=== PATIENT | male | born 1965 | race Caucasian/White ===

== ENCOUNTER → 2018-03-22 11:24 | Outpatient (CLI) | payer BC, SELFPAY ==
--- NOTE | 2018-03-22 11:38 | DI.CT.S_ITS ---
PROCEDURE: CT ABDOMEN PELVIS WO CON INDICATIONS: Kidney stone eval TECHNIQUE: After the administration of oral contrast, 5 mm thick sections acquired from the diaphragms to the symphysis. 5 mm coronal and sagittal reformats were performed. For radiation dose reduction, the following was used: automated exposure control, adjustment of mA and/or kV according to patient size. COMPARISON: None. FINDINGS: Image quality: Excellent. ABDOMEN: Lung bases: 3 mm posterior right lower lobe pulmonary nodule on axial image 4 of series 3. Heart size is normal. Solid organs: Liver is normal in size. Gallbladder shows cholelithiasis. Pancreas is normal in size. Spleen is normal in size. No adrenal nodules. Small punctate nonobstructing nephroliths within the kidneys bilaterally. There is a 6 mm obstructing stone in the mid left ureter resulting in upstream ureteral dilatation and mild hydronephrosis. Peritoneum and bowel: Bowel loops demonstrate normal wall thickness and caliber. No free fluid or air. Nodes and vessels: No retroperitoneal or mesenteric adenopathy by size criteria. Aorta and inferior vena cava are normal in size. Miscellaneous: There is a 1.0 cm-containing umbilical hernia and a 3.0 cm fat-containing ventral abdominal hernia located inferior to the umbilical hernia. PELVIS: Genitourinary: Bladder wall thickness is normal. Miscellaneous: No inguinal hernias or adenopathy. Bones: No suspicious bony lesions. No vertebral body compression fractures. IMPRESSION: #1. 6 mm obstructing stone in the mid left ureter resulting in mild upstream ureteral dilatation and mild hydronephrosis. Additional punctate nonobstructing nephroliths bilaterally. #2. Incidental findings including cholelithiasis and small ventral abdominal wall fat-containing hernias. #3. 3 mm noncalcified pulmonary nodule in the right lower lobe. Per Fleischner criteria, consider followup CT of the chest in one year if the patient has risk factors for lung cancer such as a history of smoking. Dictated by: Matthias Naranjo M.D. on 03/22/2018 at 11:57 Approved by: Matthias Naranjo M.D. on 03/22/2018 at 12:12
== END ==
PROVIDERS: Visit Provider Physician Assistant
DX: N13.2 Hydronephrosis with renal and ureteral calculous obstruction (principal); K43.9 Ventral hernia without obstruction or gangrene; R91.1 Solitary pulmonary nodule; R10.9 Unspecified abdominal pain
CPT/HCPCS: 74176

== ENCOUNTER 2018-03-24 15:33 | Emergency (ER) | payer BC, SELFPAY ==
[2018-03-24 15:59] VITALS: BP 149/81; PULSE 66; RESP 18; TEMP 36.9; O2SAT 99; BMI 54.3
--- NOTE | 2018-03-24 18:51 | ED.ABDPAIN ---
HPI - Abdominal Pain <GERTRUDE Becker - Last Filed: 03/24/18 21:05> General Chief Complaint: Abdominal Pain Stated Complaint: KIDNEY STONES Time Seen by Provider: 03/24/18 18:29 Source: patient Mode of arrival: ambulatory Limitations: no limitations History of Present Illness HPI narrative: Patient states he received a call from Sunday from the walk-in who instructed him to come to the emergency department to have his labs checked. He presented there for flank pain and upper abdominal pain, CT was ordered which found a kidney stone. He currently denies any pain at this point he denies dysuria urgency or frequency. He denies fevers, nausea, vomiting or diarrhea. He states he is only here to get his labs checked. He denies blood in his urine. Related Data Previous Rx's Medication Instructions Recorded tamsulosin [Flomax] 0.4 mg PO DAILY #7 cap 03/24/18 Allergies Allergy/AdvReac Type Severity Reaction Status Date / Time No Known Drug Allergies Allergy Verified 03/24/18 16:05 Review of Systems <GETRRUDE Becker - Last Filed: 03/24/18 21:05> Review of Systems GENERAL: Denies chills, fatigue, malaise, fever, sweats. HEENT: Denies sinus pain, ear pain, sore throat, difficulty swallowing, dizziness. RESPIRATORY: Denies dyspnea, cough, wheezing, hemoptysis, sputum. CARDIOVASCULAR: Denies chest pain, palpitations, orthopnea, edema, GASTROINTESTINAL: Denies nausea, vomiting, abdominal pain, diarrhea, constipation, melena. : See HPI MUSCULOSKELETAL: denies weakness, joint pain, or bony pain SKIN: Denies rash, skin lesions, or other NEUROLOGIC: Denies weakness, headache, numbness, change in speech, confusion, seizures, incoordination. PSYCHIATRIC: No concerning psychosocial issues. 12 point review of systems is negative except for those stated above Exam <GERTRUDE Becker - Last Filed: 03/24/18 21:05> Narrative Exam Narrative: GENERAL: Obese gentleman sitting in chair HEAD: Atraumatic. Normocephalic. No temporal or scalp tenderness. EYES: Pupils equal round and reactive. Extraocular motions intact. No scleral icterus. No injection or drainage. ENT: Nose without bleeding, purulent drainage or septal hematoma. Throat without erythema, tonsillar hypertrophy or exudate. Uvula midline. Airway patent. NECK: Trachea midline. No JVD or lymphadenopathy. Supple, nontender, no meningeal signs. CARDIOVASCULAR: Regular rate and rhythm without murmurs, gallops, or rubs. RESPIRATORY: Clear to auscultation. Breath sounds equal bilaterally. No wheezes, rales, or rhonchi. GASTROINTESTINAL: Abdomen soft, non-tender, nondistended. No hepato-splenomegaly, or palpable masses. No guarding. Active bowel sounds all 4 quadrants. EXTREMITIES: No clubbing, cyanosis, or edema. No joint tenderness, effusion, or edema noted. BACK: Nontender without deformity or crepitance. No flank tenderness. No CVA tenderness bilaterally. NEURO: AOx3. SKIN: No rash or erythema. Initial Vital Signs Initial Vital Signs: Vital Signs Temperature 98.5 F 03/24/18 15:59 Pulse Rate 66 03/24/18 15:59 Respiratory Rate 18 03/24/18 15:59 Blood Pressure 149/81 H 03/24/18 15:59 Pulse Oximetry 99 03/24/18 15:59 <Michael Manning DO - Last Filed: 03/24/18 21:07> Initial Vital Signs Initial Vital Signs: Vital Signs Temperature 98.5 F 03/24/18 15:59 Pulse Rate 66 03/24/18 15:59 Respiratory Rate 18 03/24/18 15:59 Blood Pressure 149/81 H 03/24/18 15:59 Pulse Oximetry 99 03/24/18 15:59 Course <KRISTAN Becker-BC - Last Filed: 03/24/18 21:05> Orders Ordered: ED Orders 03/24/18 19:30 CBC [Complete Blood Count AUTO DIFF] Stat Comprehensive Metabolic Panel Stat Vital Signs - 8 hr 03/24/18 15:59 03/24/18 20:21 Temperature 98.5 F Pulse Rate 66 61 Respiratory Rate 18 18 Blood Pressure 149/81 H 142/86 H Pulse Oximetry 99 98 <Michael Manning DO - Last Filed: 03/24/18 21:07> Orders Ordered: ED Orders 03/24/18 19:30 CBC [Complete Blood Count AUTO DIFF] Stat Comprehensive Metabolic Panel Stat Vital Signs - 8 hr 03/24/18 15:59 03/24/18 20:21 Temperature 98.5 F Pulse Rate 66 61 Respiratory Rate 18 18 Blood Pressure 149/81 H 142/86 H Pulse Oximetry 99 98 MDM - Abdominal Pain <VANESSA BeckerP- - Last Filed: 03/24/18 21:05> Differential Diagnosis Differential diagnosis: Likely abdominal pain, acute appendicitis, calculus of kidney, diverticulitis and gastroenteritis Medical Records Attestation: I reviewed the patient's medical records. Lab Data Attestation: I reviewed the patient's lab results. Result diagrams: 03/24/18 19:30 03/24/18 19:30 Lab Results 03/24/18 03/24/18 Range/Units 19:30 19:30 WBC 7.5 (4.5-11.0) X10^3/uL RBC 4.42 L (4.5-5.9) X10^6/uL Hgb 14.0 (13.5-17.5) g/dL Hct 40.6 L (41-53) % MCV 91.8 (80-100) fL MCH 31.7 (26-34) PG MCHC 34.5 (30-36) % RDW 13.2 (11.6-14.8) % Plt Count 185 (150-400) X10^3/uL Neut % (Auto) 67.6 (50-75) % Lymph % (Auto) 25.1 (25-40) % Hinds % (Auto) 5.0 (3-14) % Eos % (Auto) 1.3 L (2-4) % Baso % (Auto) 1.0 (0-2) % Neut # (Auto) 5100 (6788-1195) /uL Sodium 147 H (137-145) mmol/L Potassium 4.5 (3.4-5.1) mmol/L Chloride 106 (98-107) mmol/L Carbon Dioxide 32 (22-32) mmol/L BUN 13 (9-20) mg/dL Creatinine 1.00 (0.66-1.25) mg/dL Estimated GFR > 60.0 (>60) mL/min BUN/Creatinine Ratio 13.0 (6-22) Glucose 104 H (70-100) mg/dL Calcium 9.5 (8.4-10.2) mg/dL Total Bilirubin 0.5 (0.2-1.3) mg/dL AST 25 (17-59) IU/L ALT 41 (21-72) IU/L Alkaline Phosphatase 64 (38-126) U/L Total Protein 7.0 (6.3-8.2) g/dL Albumin 4.3 (3.5-5.0) g/dL Globulin 2.7 (1.7-4.1) g/dL Albumin/Globulin Ratio 1.6 (1.0-2.8) Point of care testing: Urine Dip Bedside Urine Glucose Negative Bedside Urine Bilirubin - Negative Bedside Urine Ketone - Negative Urine Specific Hinkle 1.015 Bedside Urine Occult Blood - Negative Bedside Urine pH 7.5 Bedside Urine Protein - Negative Bedside Urine Urobilinogen - Negative Bedside Urine Nitrite - Negative Bedside Urine Leukocytes - Negative Esterase Imaging Data CT scan - abdomen: Radiologist's impression: View Report History [address] [address] [address] Scan Report Signed Patient: Rubin Bautista MR#: [id number] : 1965 Acct:[id number] Age/Sex: 52 / M Date of Service: 03/22/18 Loc: CT Accession Number: [id number] Procedure: CT abdomen pelvis wo con Ordering Provider: Joseph Worrell P.A-C PROCEDURE: CT ABDOMEN PELVIS WO CON INDICATIONS: Kidney stone eval TECHNIQUE: After the administration of oral contrast, 5 mm thick sections acquired from the diaphragms to the symphysis. 5 mm coronal and sagittal reformats were performed. For radiation dose reduction, the following was used: automated exposure control, adjustment of mA and/or kV according to patient size. COMPARISON: None. FINDINGS: Image quality: Excellent. ABDOMEN: Lung bases: 3 mm posterior right lower lobe pulmonary nodule on axial image 4 of series 3. Heart size is normal. Solid organs: Liver is normal in size. Gallbladder shows cholelithiasis. Pancreas is normal in size. Spleen is normal in size. No adrenal nodules. Small punctate nonobstructing nephroliths within the kidneys bilaterally. There is a 6 mm obstructing stone in the mid left ureter resulting in upstream ureteral dilatation and mild hydronephrosis. Peritoneum and bowel: Bowel loops demonstrate normal wall thickness and caliber. No free fluid or air. Nodes and vessels: No retroperitoneal or mesenteric adenopathy by size criteria. Aorta and inferior vena cava are normal in size. Miscellaneous: There is a 1.0 cm-containing umbilical hernia and a 3.0 cm fat-containing ventral abdominal hernia located inferior to the umbilical hernia. PELVIS: Genitourinary: Bladder wall thickness is normal. Miscellaneous: No inguinal hernias or adenopathy. Bones: No suspicious bony lesions. No vertebral body compression fractures. IMPRESSION: #1. 6 mm obstructing stone in the mid left ureter resulting in mild upstream ureteral dilatation and mild hydronephrosis. Additional punctate nonobstructing nephroliths bilaterally. #2. Incidental findings including cholelithiasis and small ventral abdominal wall fat-containing hernias. #3. 3 mm noncalcified pulmonary nodule in the right lower lobe. Per Fleischner criteria, consider followup CT of the chest in one year if the patient has risk factors for lung cancer such as a history of smoking. Dictated by: Matthias Naranjo M.D. on 03/22/2018 at 11:57 Approved by: Matthias Naranjo M.D. on 03/22/2018 at 12:12 MDM Narrative Medical decision making narrative: Patient presented requesting lab work to check kidney function given recent kidney stone diagnosis. I offered pain medication, IV and a urine strainer, but the patient declined at this point time. He stated he would not strain his urine any way. I did check his CBC and CMP per his request, and his kidney function came back within normal limits. I did put him on Flomax to help encourage stone to pass. I encouraged follow up with the primary care provider and referred him to a few local to him in [place]. I offered him pain medication, but the patient declined. I discussed that the pain from a kidney stone can come back at any point but he still declined pain medication. I discussed return precautions to the emergency department including inability keep down fluids or any other acute concerns. Patient and a questions or concerns upon discharge. <Michael Manning, DO - Last Filed: 03/24/18 21:07> Lab Data Lab Results 03/24/18 03/24/18 Range/Units 19:30 19:30 WBC 7.5 (4.5-11.0) X10^3/uL RBC 4.42 L (4.5-5.9) X10^6/uL Hgb 14.0 (13.5-17.5) g/dL Hct 40.6 L (41-53) % MCV 91.8 (80-100) fL MCH 31.7 (26-34) PG MCHC 34.5 (30-36) % RDW 13.2 (11.6-14.8) % Plt Count 185 (150-400) X10^3/uL Neut % (Auto) 67.6 (50-75) % Lymph % (Auto) 25.1 (25-40) % Hinds % (Auto) 5.0 (3-14) % Eos % (Auto) 1.3 L (2-4) % Baso % (Auto) 1.0 (0-2) % Neut # (Auto) 5100 (9454-8547) /uL Sodium 147 H (137-145) mmol/L Potassium 4.5 (3.4-5.1) mmol/L Chloride 106 (98-107) mmol/L Carbon Dioxide 32 (22-32) mmol/L BUN 13 (9-20) mg/dL Creatinine 1.00 (0.66-1.25) mg/dL Estimated GFR > 60.0 (>60) mL/min BUN/Creatinine Ratio 13.0 (6-22) Glucose 104 H (70-100) mg/dL Calcium 9.5 (8.4-10.2) mg/dL Total Bilirubin 0.5 (0.2-1.3) mg/dL AST 25 (17-59) IU/L ALT 41 (21-72) IU/L Alkaline Phosphatase 64 (38-126) U/L Total Protein 7.0 (6.3-8.2) g/dL Albumin 4.3 (3.5-5.0) g/dL Globulin 2.7 (1.7-4.1) g/dL Albumin/Globulin Ratio 1.6 (1.0-2.8) Point of care testing: Urine Dip Bedside Urine Glucose Negative Bedside Urine Bilirubin - Negative Bedside Urine Ketone - Negative Urine Specific Hinkle 1.015 Bedside Urine Occult Blood - Negative Bedside Urine pH 7.5 Bedside Urine Protein - Negative Bedside Urine Urobilinogen - Negative Bedside Urine Nitrite - Negative Bedside Urine Leukocytes - Negative Esterase Discharge Plan Departure Patient Disposition: Home Clinical Impression: Kidney stone Discharge Date/Time: 03/24/18 20:27 Interventions: ED Discharge Assessment Last Done: 03/24/18 20:21 Instructions: DI for Kidney Stones Activity Restrictions/Additional Instructions: I have given you a prescription for Flomax. Please take this at night. I encourage you to push fluids, follow up if fevers, vomiting, diarrhea or signs of infection. Please follow-up with primary care provider if the stone does not pass in the next few days. You may need a referral to Urology. I have encouraged you to strain your urine. I have given you some contact information for [facility] Prescriptions: New tamsulosin [Flomax] 0.4 mg capsule 0.4 mg PO DAILY Qty: 7 RF: 0 Referrals: [facility] [Outside] [facility] [Outside] <Michael Manning DO - Last Filed: 03/24/18 21:07> [facility] ED Attending [place] Attestation: I was available for consultation during this patient's emergency department encounter
[2018-03-24 19:39] LABS: Add Manual Diff / Slide Review NO; Eosinophils Percent Auto 1.3 % (2-4); Hematocrit 40.6 % (41-53); Lymphocytes Percent Auto 25.1 % (25-40); Mean Corpuscular HGB Conc 34.5 % (30-36); Mean Corpuscular Hemoglobin 31.7 PG (26-34); Mean Corpuscular Volume 91.8 fL (80-100); Neutrophils Absolute Auto 5100 /uL (3000-5900); Neutrophils Percent Auto 67.6 % (50-75); Platelet Count 185 X10^3/uL (150-400); Red Blood Cell Count 4.42 X10^6/uL (4.5-5.9); Red Cell Distribution Width 13.2 % (11.6-14.8); White Blood Cell Count 7.5 X10^3/uL (4.5-11.0)
[2018-03-24 19:46] LABS: Alanine Aminotransferase 41 IU/L (21-72); Albumin 4.3 g/dL (3.5-5.0); Albumin Globulin Ratio 1.6 (1.0-2.8); Alkaline Phosphatase 64 U/L (38-126); Aspartate Aminotransferase 25 IU/L (17-59); Bilirubin Total 0.5 mg/dL (0.2-1.3); Blood Urea Nitrogen 13 mg/dL (9-20); Calcium 9.5 mg/dL (8.4-10.2); Carbon Dioxide 32 mmol/L (22-32); Chloride 106 mmol/L (98-107); Estimated Glomerular Filt Rate > 60.0 mL/min (>60); Globulin 2.7 g/dL (1.7-4.1); Glucose 104 mg/dL (70-100); HEMOLYSIS < 15 (0-50); Potassium 4.5 mmol/L (3.4-5.1); Sodium 147 mmol/L (137-145)
[2018-03-24 20:21] VITALS: BP 142/86; PULSE 61; RESP 18; O2SAT 98
--- NOTE | 2018-03-24 21:05 | ED_ITS ---
HPI - Abdominal Pain <GERTRUDE Becker - Last Filed: 03/24/18 21:05> General Chief Complaint: Abdominal Pain Stated Complaint: KIDNEY STONES Time Seen by Provider: 03/24/18 18:29 Source: patient Mode of arrival: ambulatory Limitations: no limitations History of Present Illness HPI narrative: Patient states he received a call from Sunday from the walk-in who instructed him to come to the emergency department to have his labs checked. He presented there for flank pain and upper abdominal pain, CT was ordered which found a kidney stone. He currently denies any pain at this point he denies dysuria urgency or frequency. He denies fevers, nausea, vomiting or diarrhea. He states he is only here to get his labs checked. He denies blood in his urine. Related Data Previous Rx's Medication Instructions Recorded tamsulosin [Flomax] 0.4 mg PO DAILY #7 cap 03/24/18 Allergies Allergy/AdvReac Type Severity Reaction Status Date / Time No Known Drug Allergies Allergy Verified 03/24/18 16:05 Review of Systems <GERTRUDE Becker - Last Filed: 03/24/18 21:05> Review of Systems GENERAL: Denies chills, fatigue, malaise, fever, sweats. HEENT: Denies sinus pain, ear pain, sore throat, difficulty swallowing, dizziness. RESPIRATORY: Denies dyspnea, cough, wheezing, hemoptysis, sputum. CARDIOVASCULAR: Denies chest pain, palpitations, orthopnea, edema, GASTROINTESTINAL: Denies nausea, vomiting, abdominal pain, diarrhea, constipation, melena. : See HPI MUSCULOSKELETAL: denies weakness, joint pain, or bony pain SKIN: Denies rash, skin lesions, or other NEUROLOGIC: Denies weakness, headache, numbness, change in speech, confusion, seizures, incoordination. PSYCHIATRIC: No concerning psychosocial issues. 12 point review of systems is negative except for those stated above Exam <GERTRUDE Becker - Last Filed: 03/24/18 21:05> Narrative Exam Narrative: GENERAL: Obese gentleman sitting in chair HEAD: Atraumatic. Normocephalic. No temporal or scalp tenderness. EYES: Pupils equal round and reactive. Extraocular motions intact. No scleral icterus. No injection or drainage. ENT: Nose without bleeding, purulent drainage or septal hematoma. Throat without erythema, tonsillar hypertrophy or exudate. Uvula midline. Airway patent. NECK: Trachea midline. No JVD or lymphadenopathy. Supple, nontender, no meningeal signs. CARDIOVASCULAR: Regular rate and rhythm without murmurs, gallops, or rubs. RESPIRATORY: Clear to auscultation. Breath sounds equal bilaterally. No wheezes , rales, or rhonchi. GASTROINTESTINAL: Abdomen soft, non-tender, nondistended. No hepato-splenomegaly , or palpable masses. No guarding. Active bowel sounds all 4 quadrants. EXTREMITIES: No clubbing, cyanosis, or edema. No joint tenderness, effusion, or edema noted. BACK: Nontender without deformity or crepitance. No flank tenderness. No CVA tenderness bilaterally. NEURO: AOx3. SKIN: No rash or erythema. Initial Vital Signs Initial Vital Signs: Vital Signs Temperature 98.5 F 03/24/18 15:59 Pulse Rate 66 03/24/18 15:59 Respiratory Rate 18 03/24/18 15:59 Blood Pressure 149/81 H 03/24/18 15:59 Pulse Oximetry 99 03/24/18 15:59 <Michael Manning DO - Last Filed: 03/24/18 21:07> Initial Vital Signs Initial Vital Signs: Vital Signs Temperature 98.5 F 03/24/18 15:59 Pulse Rate 66 03/24/18 15:59 Respiratory Rate 18 03/24/18 15:59 Blood Pressure 149/81 H 03/24/18 15:59 Pulse Oximetry 99 03/24/18 15:59 Course <KRISTAN Becker-BC - Last Filed: 03/24/18 21:05> Orders Ordered: ED Orders 03/24/18 19:30 CBC [Complete Blood Count AUTO DIFF] Stat Comprehensive Metabolic Panel Stat Vital Signs - 8 hr 03/24/18 15:59 03/24/18 20:21 Temperature 98.5 F Pulse Rate 66 61 Respiratory Rate 18 18 Blood Pressure 149/81 H 142/86 H Pulse Oximetry 99 98 <Michael Manning DO - Last Filed: 03/24/18 21:07> Orders Ordered: ED Orders 03/24/18 19:30 CBC [Complete Blood Count AUTO DIFF] Stat Comprehensive Metabolic Panel Stat Vital Signs - 8 hr 03/24/18 15:59 03/24/18 20:21 Temperature 98.5 F Pulse Rate 66 61 Respiratory Rate 18 18 Blood Pressure 149/81 H 142/86 H Pulse Oximetry 99 98 MDM - Abdominal Pain <VANESSA BeckerP- - Last Filed: 03/24/18 21:05> Differential Diagnosis Differential diagnosis: Likely abdominal pain, acute appendicitis, calculus of kidney, diverticulitis and gastroenteritis Medical Records Attestation: I reviewed the patient's medical records. Lab Data Attestation: I reviewed the patient's lab results. Result diagrams: 03/24/18 19:30 03/24/18 19:30 Lab Results 03/24/18 03/24/18 Range/Units 19:30 19:30 WBC 7.5 (4.5-11.0) X10^3/uL RBC 4.42 L (4.5-5.9) X10^6/uL Hgb 14.0 (13.5-17.5) g/dL Hct 40.6 L (41-53) % MCV 91.8 (80-100) fL MCH 31.7 (26-34) PG MCHC 34.5 (30-36) % RDW 13.2 (11.6-14.8) % Plt Count 185 (150-400) X10^3/uL Neut % (Auto) 67.6 (50-75) % Lymph % (Auto) 25.1 (25-40) % [place] % (Auto) 5.0 (3-14) % Eos % (Auto) 1.3 L (2-4) % Baso % (Auto) 1.0 (0-2) % Neut # (Auto) 5100 (3117-5071) /uL Sodium 147 H (137-145) mmol/L Potassium 4.5 (3.4-5.1) mmol/L Chloride 106 (98-107) mmol/L Carbon Dioxide 32 (22-32) mmol/L BUN 13 (9-20) mg/dL Creatinine 1.00 (0.66-1.25) mg/dL Estimated GFR > 60.0 (>60) mL/min BUN/Creatinine Ratio 13.0 (6-22) Glucose 104 H (70-100) mg/dL Calcium 9.5 (8.4-10.2) mg/dL Total Bilirubin 0.5 (0.2-1.3) mg/dL AST 25 (17-59) IU/L ALT 41 (21-72) IU/L Alkaline Phosphatase 64 (38-126) U/L Total Protein 7.0 (6.3-8.2) g/dL Albumin 4.3 (3.5-5.0) g/dL Globulin 2.7 (1.7-4.1) g/dL Albumin/Globulin Ratio 1.6 (1.0-2.8) Point of care testing: Urine Dip Bedside Urine Glucose Negative Bedside Urine Bilirubin - Negative Bedside Urine Ketone - Negative Urine Specific [place] 1.015 Bedside Urine Occult Blood - Negative Bedside Urine pH 7.5 Bedside Urine Protein - Negative Bedside Urine Urobilinogen - Negative Bedside Urine Nitrite - Negative Bedside Urine Leukocytes - Negative Esterase Imaging Data CT scan - abdomen: Radiologist's impression: View Report History [address] [address] [address] Scan Report Signed Patient: Rubin Bautista MR#: [id number] : 1965 Acct:[id number] Age/Sex: 52 / M Date of Service: 03/22/18 Loc: CT Accession Number: [id number] Procedure: CT abdomen pelvis wo con Ordering Provider: Joseph Worrell P.A-C PROCEDURE: CT ABDOMEN PELVIS WO CON INDICATIONS: Kidney stone eval TECHNIQUE: After the administration of oral contrast, 5 mm thick sections acquired from the diaphragms to the symphysis. 5 mm coronal and sagittal reformats were performed. For radiation dose reduction, the following was used: automated exposure control, adjustment of mA and/or kV according to patient size. COMPARISON: None. FINDINGS: Image quality: Excellent. ABDOMEN: Lung bases: 3 mm posterior right lower lobe pulmonary nodule on axial image 4 of series 3. Heart size is normal. Solid organs: Liver is normal in size. Gallbladder shows cholelithiasis. Pancreas is normal in size. Spleen is normal in size. No adrenal nodules. Small punctate nonobstructing nephroliths within the kidneys bilaterally. There is a 6 mm obstructing stone in the mid left ureter resulting in upstream ureteral dilatation and mild hydronephrosis. Peritoneum and bowel: Bowel loops demonstrate normal wall thickness and caliber. No free fluid or air. Nodes and vessels: No retroperitoneal or mesenteric adenopathy by size criteria. Aorta and inferior vena cava are normal in size. Miscellaneous: There is a 1.0 cm-containing umbilical hernia and a 3.0 cm fat- containing ventral abdominal hernia located inferior to the umbilical hernia. PELVIS: Genitourinary: Bladder wall thickness is normal. Miscellaneous: No inguinal hernias or adenopathy. Bones: No suspicious bony lesions. No vertebral body compression fractures. IMPRESSION: #1. 6 mm obstructing stone in the mid left ureter resulting in mild upstream ureteral dilatation and mild hydronephrosis. Additional punctate nonobstructing nephroliths bilaterally. #2. Incidental findings including cholelithiasis and small ventral abdominal wall fat-containing hernias. #3. 3 mm noncalcified pulmonary nodule in the right lower lobe. Per Fleischner criteria, consider followup CT of the chest in one year if the patient has risk factors for lung cancer such as a history of smoking. Dictated by: Matthias Naranjo M.D. on 03/22/2018 at 11:57 Approved by: Matthias Naranjo M.D. on 03/22/2018 at 12:12 MDM Narrative Medical decision making narrative: Patient presented requesting lab work to check kidney function given recent kidney stone diagnosis. I offered pain medication, IV and a urine strainer, but the patient declined at this point time. He stated he would not strain his urine any way. I did check his CBC and CMP per his request, and his kidney function came back within normal limits. I did put him on Flomax to help encourage stone to pass. I encouraged follow up with the primary care provider and referred him to a few local to him in [place]. I offered him pain medication, but the patient declined. I discussed that the pain from a kidney stone can come back at any point but he still declined pain medication. I discussed return precautions to the emergency department including inability keep down fluids or any other acute concerns. Patient and a questions or concerns upon discharge. <Michael Manning, DO - Last Filed: 03/24/18 21:07> Lab Data Lab Results 03/24/18 03/24/18 Range/Units 19:30 19:30 WBC 7.5 (4.5-11.0) X10^3/uL RBC 4.42 L (4.5-5.9) X10^6/uL Hgb 14.0 (13.5-17.5) g/dL Hct 40.6 L (41-53) % MCV 91.8 (80-100) fL MCH 31.7 (26-34) PG MCHC 34.5 (30-36) % RDW 13.2 (11.6-14.8) % Plt Count 185 (150-400) X10^3/uL Neut % (Auto) 67.6 (50-75) % Lymph % (Auto) 25.1 (25-40) % [place] % (Auto) 5.0 (3-14) % Eos % (Auto) 1.3 L (2-4) % Baso % (Auto) 1.0 (0-2) % Neut # (Auto) 5100 (4143-0536) /uL Sodium 147 H (137-145) mmol/L Potassium 4.5 (3.4-5.1) mmol/L Chloride 106 (98-107) mmol/L Carbon Dioxide 32 (22-32) mmol/L BUN 13 (9-20) mg/dL Creatinine 1.00 (0.66-1.25) mg/dL Estimated GFR > 60.0 (>60) mL/min BUN/Creatinine Ratio 13.0 (6-22) Glucose 104 H (70-100) mg/dL Calcium 9.5 (8.4-10.2) mg/dL Total Bilirubin 0.5 (0.2-1.3) mg/dL AST 25 (17-59) IU/L ALT 41 (21-72) IU/L Alkaline Phosphatase 64 (38-126) U/L Total Protein 7.0 (6.3-8.2) g/dL Albumin 4.3 (3.5-5.0) g/dL Globulin 2.7 (1.7-4.1) g/dL Albumin/Globulin Ratio 1.6 (1.0-2.8) Point of care testing: Urine Dip Bedside Urine Glucose Negative Bedside Urine Bilirubin - Negative Bedside Urine Ketone - Negative Urine Specific [place] 1.015 Bedside Urine Occult Blood - Negative Bedside Urine pH 7.5 Bedside Urine Protein - Negative Bedside Urine Urobilinogen - Negative Bedside Urine Nitrite - Negative Bedside Urine Leukocytes - Negative Esterase Discharge Plan Departure Patient Disposition: Home Clinical Impression: Kidney stone Discharge Date/Time: 03/24/18 20:27 Interventions: ED Discharge Assessment Last Done: 03/24/18 20:21 Instructions: DI for Kidney Stones Activity Restrictions/Additional Instructions: I have given you a prescription for Flomax. Please take this at night. I encourage you to push fluids, follow up if fevers, vomiting, diarrhea or signs of infection. Please follow-up with primary care provider if the stone does not pass in the next few days. You may need a referral to Urology. I have encouraged you to strain your urine. I have given you some contact information for Medical Clinics on [facility] Prescriptions: New tamsulosin [Flomax] 0.4 mg capsule 0.4 mg PO DAILY Qty: 7 RF: 0 Referrals: [facility] [Outside] [facility] [Outside] <Michael Manning DO - Last Filed: 03/24/18 21:07> [place] ED Attending [place] Attestation: I was available for consultation during this patient's emergency department encounter
== END 2018-03-24 20:27 | disposition home or self-care (01) ==
PROVIDERS: Emergency Provider Nurse Practitioner Family
DX: N20.0 Calculus of kidney (principal)
CPT/HCPCS: 36415; 80053; 81003; 85025; 99282; 99283

== ENCOUNTER → 2018-06-28 07:48 | Outpatient (CLI) | payer BC, SELFPAY ==
--- NOTE | 2018-06-28 07:53 | DI.US.S_ITS ---
PROCEDURE: US RENAL COMPLETE INDICATIONS: to see if kidney stone has moved from CT scan that was done TECHNIQUE: Real-time scanning was performed of the kidneys and bladder, with image documentation. COMPARISON: [facility], CT, CT ABDOMEN PELVIS WO ERI, 03/22/2018, 11:27. FINDINGS: Kidneys: Kidneys are normal in size. Right kidney measures 14.2 cm long; left kidney measures 15.2 cm long. Right renal cortical thickness is 2.0 cm; left renal cortical thickness is 1.8 cm. Renal cortical echotexture is normal.. Moderate left hydronephrosis. No sonographically visible nephrolithiasis. No definite ureteral calculus. No suspicious solid mass lesions. Bladder: Bladder was decompressed at the time the study therefore unremarkable Miscellaneous: No free pelvic fluid. IMPRESSION: Moderate left hydronephrosis. Left ureteral calculus (demonstrated on the prior CT from 03/22/18) not sonographically visible. Dictated by: Chad Pinto M.D. on 06/28/2018 at 9:08 Approved by: Chad Pinto M.D. on 06/28/2018 at 9:11
== END ==
PROVIDERS: Visit Provider Family Medicine
DX: N13.2 Hydronephrosis with renal and ureteral calculous obstruction (principal)
CPT/HCPCS: 76770